=== PATIENT | male | born 1955 | race Hispanic/Latino ===

== ENCOUNTER 2022-08-13 10:35 | Day surgery (SDC) | payer OTHER ==
[2022-08-13] MEDS ORDERED: NA CHLORIDE 0.9% 1,000 ML ONE ×2 (11:05→14:51)
[2022-08-13 11:18] LABS: Potassium 3.5 mmol/L (3.5-5.1)
[2022-08-13] MEDS ORDERED: LIDOCAINE 1% MPF 5 ML VIAL ONE (13:29)
[2022-08-13] MEDS ORDERED: propofoL 200 MG/20 ML VIAL IV ONE ×4 (13:29→13:51)
--- NOTE | 2022-08-13 14:27 | ENDO RPT ---
[address], [address] EGD PROCEDURE REPORT EXAM DATE: 08/13/2022 PATIENT NAME: Severiano Rey MR#: [id number] BIRTHDATE: 1955 ATTENDING: Evens Burleson DR STATUS: outpatient WARNING ANALYST: Mary Grace HORTA and Tyshawn Desai Lead Tech INDICATIONS: The patient is a 67 yr old Male here for an EGD due to GERD PROCEDURE PERFORMED: EGD with biopsy for H. pylori MEDICATIONS: Per Anesthesia. TOPICAL ANESTHETIC: none CONSENT: The patient understands the risks and benefits of the procedure and understands that these risks include, but are not limited to: sedation, allergic reaction, infection, perforation and/or bleeding. Alternative means of evaluation and treatment include, among others: physical exam, x-rays, and/or surgical intervention. The patient elects to proceed with this endoscopic procedure. DESCRIPTION OF PROCEDURE: During intra-op preparation period all mechanical medical equipment was checked for proper function. Hand hygiene and appropriate measures for infection prevention was taken. Procedure, possible complications, and alternatives including but not limited to the possibility of bleeding, perforation, tear, infection, sepsis, need for surgery, need for blood transfusion, and anesthesia related complications were explained to the patient. After the risks, benefits and alternatives of the procedure were thoroughly explained, Informed consent was verified, confirmed and timeout was successfully executed by the treatment team. The patient was placed in the left lateral position. The patient was anesthetized with topical anesthesia. Through the anesthetized oropharyngeal area, the scope was passed without any difficulty. The EG-[id number] ([id number]) endoscope was introduced through the mouth and advanced to the third portion of the duodenum. Retroflexed views revealed no abnormalities. The gastroscope was then slowly withdrawn and removed. Mild gastritis was found in the body and the antrum of the stomach. polyps With standard forceps, a biopsy was obtained and sent to pathology. A biopsy of the GEJ was obtained to rule out Smith's. A biopsy for H. pylori was taken. Polyp was snared, then cauterized with monopolar cautery. Polyp was retrieved and sent to pathology. Normal GE junction was noted. Multiple biopsies were obtained and sent to pathology. The duodenal bulb was normal in appearance, as was the postbulbar duodenum. With standard forceps, a biopsy was obtained and sent to pathology. ADVERSE EVENTS: There were no complications. IMPRESSIONS: 1. Mild gastritis was found in the body and the antrum of the stomach 2. Normal GE junction 3. Normal duodenum RECOMMENDATIONS: 1. acid suppression therapy 2. anti-reflux regimen 3. await biopsy results 4. avoid NSAIDS 5. follow-up: office 2 week(s) 6. follow-up of helicobacter pylori status, treat if indicated REPEAT EXAM: Return in 1 year(s) for EGD. hold all acid suppression 2 weeks prior to procedure Evens Burleson DR eSigned: Evens Burleson DR 08/13/2022 2:26 PM cc: CPT CODES: ICD9 CODES: PATIENT NAME: Severiano Rey MR#: [id number]
--- NOTE | 2022-08-13 14:32 | ENDO RPT ---
[address], [address] COLONOSCOPY PROCEDURE REPORT EXAM DATE: 08/13/2022 PATIENT NAME: Severiano Rey MR #: [id number] BIRTHDATE: 1955 ATTENDING: Evens Burlesno DR STATUS: outpatient ABRASIVE WHEEL MOLDER: Mary Grace HORTA and Tyshawn Desai [employer] Tech INDICATIONS: The patient is a 67 yr old Male here for a colonoscopy due to colon cancer screening PROCEDURE PERFORMED: Colonoscopy with biopsy - cold polypectomy MEDICATIONS: Per Anesthesia. ESTIMATED BLOOD LOSS: None CONSENT: The patient understands the risks and benefits of the procedure and understands that these risks include, but are not limited to: sedation, allergic reaction, infection, perforation and/or bleeding. Alternative means of evaluation and treatment include, among others: physical exam, x-rays, and/or surgical intervention. The patient elects to proceed with this endoscopic procedure. DESCRIPTION OF PROCEDURE: During intra-op preparation period all mechanical medical equipment was checked for proper function. Hand hygiene and appropriate measures for infection prevention was taken. Procedure, possible complications, alternatives including, but not limited to possibility of bleeding, perforation, tear, infection, sepsis, need for surgery, need for blood transfusion, were explained to the patient. After the risks, benefits and alternatives of the procedure were thoroughly explained, Informed consent was verified, confirmed and timeout was successfully executed by the treatment team. The patient was placed in the left lateral position. A digital rectal exam was performed and revealed an enlarged prostate, A digital rectal exam was performed and revealed internal hemorrhoids, and A digital rectal exam was performed and revealed external hemorrhoids. After appropriate level of anesthesia, the scope was passed. The EC-[id number] ([id number]) endoscope was introduced through the anus and advanced to the cecum, which was identified by both the appendix and ileocecal valve. The quality of the prep was fair. The instrument was then slowly withdrawn as the colon was fully examined. Scope withdrawal time was 12 minutes. COLON FINDINGS: Two smooth and polypoid shaped semi-pedunculated polyps ranging between 5-9mm in size were found at the hepatic flexure and in the transverse colon. A polypectomy was performed using snare cautery and with cold forceps. The resection was complete, the polyp tissue was completely retrieved and sent to histology. Mild diverticulosis was noted in the sigmoid colon. No bleeding was noted from the diverticulosis. Small internal and external hemorrhoids were found. A mass measuring 2 X 3cm in size was found in the descending colon. Lipomatous - Mass - Biopsy taken. A biopsy of the lesion was performed using cold forceps. Retroflexed views revealed no abnormalities. The scope was then completely withdrawn from the patient and the procedure terminated. ADVERSE EVENTS: There were no complications. IMPRESSIONS: 1. Two semi-pedunculated polyps ranging between 5-9mm in size were found at the hepatic flexure and in the transverse colon; polypectomy was performed using snare cautery and with cold forceps 2. Mild diverticulosis was noted in the sigmoid colon 3. Small internal and external hemorrhoids 4. Mass measuring 2 X 3cm in size was found in the descending colon; Lipomatous - Mass - Biopsy taken; biopsy of the lesion was performed using cold forceps RECOMMENDATIONS: 1. avoid NSAIDS for 2 weeks 2. await biopsy results 3. fiber rich diet 4. follow-up: office 2 week(s) 5. Monitor for any evidence of rectal bleeding. 6. hemorrhoidal hygiene 7. yearly hemoquant 8. increase dietary water RECALL: for Colonoscopy, pending biopsy results. Evens Burleson DR eSigned: Evens Burleson DR 08/13/2022 2:31 PM cc: CPT CODES: ICD9 CODES: PATIENT NAME: Severiano Rey MR#: [id number]
[2022-08-13 15:19] VITALS: TEMP 97
[2022-08-13 15:31] VITALS: BP 131/62; O2SAT 98
== END 2022-08-13 15:25 | disposition home or self-care (01) ==
LOC: OR 10:35
PROVIDERS: ATTEND Surgery
PROC: 0DB78ZX Excision of Stomach, Pylorus, Via Natural or Artificial Opening Endoscopic, Diagnostic (ICD-10-PCS; 2022-08-13)
PROC: 0DB68ZX Excision of Stomach, Via Natural or Artificial Opening Endoscopic, Diagnostic (ICD-10-PCS; 2022-08-13)
PROC: 0DB58ZX Excision of Esophagus, Via Natural or Artificial Opening Endoscopic, Diagnostic (ICD-10-PCS; 2022-08-13)
PROC: 0DB48ZX Excision of Esophagogastric Junction, Via Natural or Artificial Opening Endoscopic, Diagnostic (ICD-10-PCS; 2022-08-13)
PROC: 0DBL8ZX Excision of Transverse Colon, Via Natural or Artificial Opening Endoscopic, Diagnostic (ICD-10-PCS; principal; 2022-08-13 12:00)
PROC: 0DB98ZX Excision of Duodenum, Via Natural or Artificial Opening Endoscopic, Diagnostic (ICD-10-PCS; 2022-08-13 12:00)
DX: Z12.11 Encounter for screening for malignant neoplasm of colon (principal); K21.9 Gastro-esophageal reflux disease without esophagitis; K29.50 Unspecified chronic gastritis without bleeding; K57.30 Diverticulosis of large intestine without perforation or abscess without bleeding; K64.8 Other hemorrhoids; K64.4 Residual hemorrhoidal skin tags; D12.3 Benign neoplasm of transverse colon
CPT/HCPCS: 80048; 36415; 88312; 82947; 88305; 45380; 43239; J2704 ×4; J2001; J7030 ×2